=== PATIENT | female | born 1970 | race Two or more races ===

== ENCOUNTER 2021-09-27 14:01 | Emergency (ER) | payer MEDICAID, OTHER ==
[~2021-09-27] VITALS: Ht 167.6 cm; Wt 99.8 kg
[2021-09-27 14:31] VITALS: BP 124/76
[2021-09-27] MEDS ORDERED: cefTRIAXone SOD 1,000 MG VL IM ONE (15:15)
[2021-09-27] MEDS ORDERED: metroNIDAZOLE 500 MG TAB PO ONE (15:15)
[2021-09-27 15:52] LABS: Urine Bacteria FEW /hpf (None Seen); Urine Blood 1+ /uL (Negative); Urine Specific Gravity 1.004 (1.001-1.035); Urine WBC 17 /hpf (0 - 5)
[2021-09-27] MEDS ORDERED: SULF400T11 PO (16:03)
[2021-09-27] MEDS ORDERED: IBUP800T27 PO (16:04)
== END 2021-09-27 16:11 | disposition home or self-care (01) ==
LOC: ER 14:07
DX: N76.0 Acute vaginitis (principal); B96.89 Other specified bacterial agents as the cause of diseases classified elsewhere; N39.0 Urinary tract infection, site not specified; E11.9 Type 2 diabetes mellitus without complications; E03.9 Hypothyroidism, unspecified; Z90.49 Acquired absence of other specified parts of digestive tract
CPT/HCPCS: 81001; 96372; 99283; J0696

== ENCOUNTER 2023-08-14 16:55 | Emergency (ER) | payer MEDICAID ==
[~2023-08-14] VITALS: Ht 167.6 cm; Wt 101.2 kg
[~2023-08-14 16:55] MED LIST: IBUP-1456 PO; SULF400T11 PO
[2023-08-14 17:37] LABS: Urine Bacteria FEW /hpf (None Seen); Urine Blood 2+ /uL (Negative); Urine Clarity HAZY (Clear); Urine Color Colorless (Yellow); Urine Hyaline Cast FEW /lpf (0 - 2); Urine Protein, UAD Negative (Negative); Urine Specific Gravity 1.008 (1.001-1.035); Urine Urobilinogen Normal (Negative); Urine WBC 3 /hpf (0 - 5)
[2023-08-14] MEDS: ONDANSETRON ODT 4 MG TAB PO ONE (18:08)
[2023-08-14 18:32] LABS: Basophils # (auto) 0.1 10 ^3/uL (0-0.2); Hemoglobin 13.3 g/dL (12.2-16.2); Lymphocytes # (auto) 3.4 10 ^3/uL (0.4-5.4); Mean Corpuscular Hemoglobin 26.9 pg (28.0-32.0); Nucleated Red Blood Cells % 0.1 %; White Blood Cell 12.1 10^3/uL (4.4-10.8)
[2023-08-14 18:35] LABS: Basophils % (auto) 0.6 % (0.0-2.0); Eosinophils # (auto) 0.3 10 ^3/uL (0-0.8); Eosinophils % (auto) 2.1 % (0.0-7.0); Hematocrit 41.4 % (36.0-46.0); Mean Corpuscular Volume 83.9 fL (80.0-100.0); Monocytes % (auto) 7.9 % (0.0-12.0); Neutrophils # (auto) 7.4 10 ^3/uL (1.6-8.6); Neutrophils % (auto) 61.4 % (37.0-80.0); Red Blood Cells 4.93 10^6/uL (4.0-5.20); Red Cell Distribution Width 16.6 % (11.8-14.3)
[2023-08-14 19:01] LABS: Chloride 99 mmol/L (98-107); Potassium 3.8 mmol/L (3.5-5.1); Sodium 133 mmol/L (136-145)
[2023-08-14 19:02] LABS: Anion Gap 9 (5-15); Calcium 9.6 mg/dL (8.7-10.4); Carbon Dioxide 25 mmol/L (20-30)
[2023-08-14 19:07] LABS: BUN/Creatinine Ratio 9.9 (10.0-20.0); Blood Urea Nitrogen 8 mg/dL (9-23); Glucose 320 mg/dL (74-106); Lipase 58 U/L (12-53)
[2023-08-14] MEDS: DICYCLOMINE HCL (10MG/ML) 2 ML AMPULE IM ONE (19:16)
[2023-08-14] MEDS ORDERED: ZOFR4T PO (19:40)
[2023-08-14] MEDS ORDERED: DICY10CA PO (19:40)
[2023-08-14 19:46] VITALS: BP 135/98; PULSE 97; RESP 18; TEMP 97.8; O2SAT 99
== END 2023-08-14 19:40 | disposition home or self-care (01) ==
LOC: ER 16:55
DX: E11.65 Type 2 diabetes mellitus with hyperglycemia (principal); R10.31 Right lower quadrant pain; Z90.49 Acquired absence of other specified parts of digestive tract; Z98.51 Tubal ligation status
CPT/HCPCS: 36415; 74176; 80048; 81001; 83690; 85025; 93005; 96372; 99285; J0500

== ENCOUNTER 2023-08-25 10:15 | Emergency (ER) | payer SELFPAY ==
[~2023-08-25] VITALS: Ht 167.6 cm; Wt 97.5 kg
[~2023-08-25 10:15] MED LIST changes: +DICY10CA PO; +ZOFR4T PO
[2023-08-25 10:19] VITALS: BP 117/61; PULSE 75; RESP 20; TEMP 97.5; O2SAT 98
[2023-08-25] MEDS ORDERED: IBUP-1455 PO (11:51)
[2023-08-25] MEDS ORDERED: AMOX875T4 PO (11:51)
== END 2023-08-25 11:55 | disposition home or self-care (01) ==
LOC: ER 10:15
DX: J32.0 Chronic maxillary sinusitis (principal); E11.9 Type 2 diabetes mellitus without complications; Z98.890 Other specified postprocedural states; Z88.5 Allergy status to narcotic agent; Z79.899 Other long term (current) drug therapy